=== PATIENT | male | born 1995 | race Caucasian/White ===

== ENCOUNTER 2018-02-16 08:11 | Emergency (ER) | payer OTHER ==
[2018-02-16 08:21] VITALS: BP 110/63; PULSE 97; RESP 18; TEMP 99.4
--- NOTE | 2018-02-16 08:29 | ED ---
Skin/Abscess/FB HPI - General Chief complaint: Skin/Abscess/Foreign Body Stated complaint: Facial infection Time Seen by Provider: 02/16/18 08:23 Source: patient, RN notes reviewed Mode of arrival: ambulatory Limitations: no limitations - History of Present Illness Initial comments: This is a 22-year-old male presents emergency Department chief complaint of infection to his right cheek. Patient states started a few days ago with an pimple states that has increased. He's been squeezing at it and he states that he try to pop it which made it worse. Patient states he feels pressure in his cheek he's had no fever no chills no headache no dizziness and no neck pain. Patient has no history of MRSA or VRE. - Related Data Previous Rx's Medication Instructions Recorded Sulfamethox-Tmp 800-160Mg [Bactrim 2 each PO Q12HR #40 tab 02/16/18 Ds] Allergies Allergy/AdvReac Type Severity Reaction Status Date / Time tomato Allergy Rash/Hives Verified 02/16/18 08:22 Review of Systems ROS Statement: Those systems with pertinent positive or pertinent negative responses have been documented in the HPI. ROS Other: All systems not noted in ROS Statement are negative. Past Medical History Past Medical History: No Reported History History of Any Multi-Drug Resistant Organisms: None Reported Past Surgical History: No Surgical Hx Reported Past Psychological History: No Psychological Hx Reported Smoking Status: Current every day smoker Past Alcohol Use History: None Reported Past Drug Use History: None Reported General Exam Limitations: no limitations General appearance: alert, in no apparent distress Head exam: Present: atraumatic, normocephalic, normal inspection Eye exam: Present: normal appearance, PERRL, EOMI. Absent: scleral icterus, conjunctival injection, periorbital swelling ENT exam: Present: normal oropharynx, mucous membranes moist, TM's normal bilaterally, normal external ear exam, other (Right cheek there is a 1 cm area of induration, erythema which appears to be an abscess. This is nonfluctuant). Absent: normal exam Neck exam: Present: normal inspection, full ROM. Absent: tenderness, meningismus, lymphadenopathy Respiratory exam: Present: normal lung sounds bilaterally. Absent: respiratory distress, wheezes, rales, rhonchi, stridor Cardiovascular Exam: Present: regular rate, normal rhythm, normal heart sounds. Absent: systolic murmur, diastolic murmur, rubs, gallop, clicks Neurological exam: Present: alert Skin exam: Present: warm, dry, intact, normal color Course Vital Signs 02/16/18 08:18 Temperature 99.4 F Pulse Rate 97 Respiratory 18 Rate Blood Pressure 110/63 O2 Sat by Pulse 100 Oximetry Medical Decision Making - Medical Decision Making 22-year-old male presented from for right cheek abscess. This is nonfluctuant abscess. There is a current opening to the area. Patient will be started on Bactrim 2 tablets twice daily concern for MRSA. Patient will warm compresses and follow-up for recheck in 24 hours and return for any worsening symptoms. Disposition Clinical Impression: Facial abscess Disposition: HOME SELF-CARE Instructions: Abscess (ED) Additional Instructions: Please return to the Emergency Department if symptoms worsen or any other concerns. Prescriptions: Sulfamethox-Tmp 800-160Mg [Bactrim Ds] 2 each PO Q12HR #40 tab Is patient prescribed a controlled substance at d/c from ED?: No Referrals: Daniella Loza MD [STAFF PHYSICIAN] - 1-2 days Time of Disposition: 08:29
== END 2018-02-16 08:59 | disposition home or self-care (01) ==
LOC: EC 08:11
DX: L02.01 Cutaneous abscess of face (principal); F17.200 Nicotine dependence, unspecified, uncomplicated; Z91.018 Allergy to other foods
CPT/HCPCS: 99282

== ENCOUNTER 2018-04-24 09:41 | Emergency (ER) | payer OTHER ==
[2018-04-24 09:45] VITALS: TEMP 98.4
[2018-04-24] MEDS ORDERED: KETOROLAC 60 MG/2 ML VIAL IM STA (10:22)
[2018-04-24] MEDS ORDERED: ORPHENADRINE 30 MG/ML 2 ML VIAL IM STA (10:22)
--- NOTE | 2018-04-24 10:26 | ED ---
Neck Injury/Pain HPI - General Chief Complaint: Neck Pain/Injury Stated Complaint: Neck Pain Time Seen by Provider: 04/24/18 09:58 Source: patient, RN notes reviewed Mode of arrival: ambulatory Limitations: no limitations - History of Present Illness Initial Comments: This a 22-year-old male with a history of a "pinched nerve" in his neck who states he's had 2 days of left-sided neck pain radiating down to his left arm. He states that sharp in nature very severe. Increases with movement. He denies any trauma lifting. Patient does say he's had a cough recently. No fevers chills sweats or phlegm production patient is a smoker - Related Data Home Medications Medication Instructions Recorded Confirmed Ibuprofen [Motrin Ib] 200 - 400 mg PO TID PRN 02/16/18 02/16/18 Previous Rx's Medication Instructions Recorded Sulfamethox-Tmp 800-160Mg [Bactrim 2 each PO Q12HR #40 tab 02/16/18 Ds] Cyclobenzaprine [Flexeril] 10 mg PO TID #14 tab 04/24/18 Ibuprofen 800 mg PO Q6HR PRN #20 tablet 04/24/18 predniSONE 20 mg PO BID #10 tab 04/24/18 Allergies Allergy/AdvReac Type Severity Reaction Status Date / Time tomato Allergy Rash/Hives Verified 04/24/18 09:44 Review of Systems ROS Statement: Those systems with pertinent positive or pertinent negative responses have been documented in the HPI. ROS Other: All systems not noted in ROS Statement are negative. Past Medical History Past Medical History: No Reported History History of Any Multi-Drug Resistant Organisms: None Reported Past Surgical History: No Surgical Hx Reported Past Psychological History: No Psychological Hx Reported Smoking Status: Current every day smoker Past Alcohol Use History: None Reported Past Drug Use History: Marijuana General Exam - General Exam Comments Initial Comments: This a well-developed well-nourished awake alert oriented times 3 male Limitations: no limitations General appearance: alert, anxious Head exam: Present: atraumatic, normocephalic, normal inspection Eye exam: Present: normal appearance, PERRL, EOMI. Absent: scleral icterus, conjunctival injection, periorbital swelling ENT exam: Present: normal exam, mucous membranes moist Neck exam: Present: normal inspection, tenderness, full ROM, other (Tenderness palpation along the left trapezius musculature and left paraspinous musculature on the cervical spine. No spinous process tenderness. No left shoulder tenderness.). Absent: meningismus, lymphadenopathy, thyromegaly Respiratory exam: Present: normal lung sounds bilaterally. Absent: respiratory distress, wheezes, rales, rhonchi, stridor Cardiovascular Exam: Present: regular rate, normal rhythm, normal heart sounds. Absent: systolic murmur, diastolic murmur, rubs, gallop, clicks Extremities exam: Present: normal inspection, full ROM, normal capillary refill. Absent: tenderness, pedal edema, joint swelling, calf tenderness Back exam: Present: normal inspection Neurological exam: Present: alert, oriented X3, CN II-XII intact Psychiatric exam: Present: normal affect, normal mood Skin exam: Present: warm, dry, intact, normal color. Absent: rash Course Vital Signs 04/24/18 09:43 Temperature 98.4 F Pulse Rate 101 H Respiratory 20 Rate Blood Pressure 108/71 O2 Sat by Pulse 98 Oximetry Medical Decision Making - Medical Decision Making I did discuss findings with the patient is feeling somewhat improved he'll be discharged on appropriate medication. The presentation is consistent with a muscle spasm - Radiology Data Radiology results: report reviewed (I did review the imaging and report no acute findings.), image reviewed Disposition Clinical Impression: Strain of neck muscle, Myofascial pain on left side Disposition: HOME SELF-CARE Condition: Good Instructions: Cervical Strain (ED), Muscle Spasm (ED) Prescriptions: Cyclobenzaprine [Flexeril] 10 mg PO TID #14 tab Ibuprofen 800 mg PO Q6HR PRN #20 tablet PRN Reason: Pain predniSONE 20 mg PO BID #10 tab Is patient prescribed a controlled substance at d/c from ED?: No Referrals: None,Stated [Primary Care Provider] - 1-2 days
[2018-04-24] MEDS ORDERED: KETOROLAC 30 MG/ML 1 ML VIAL IVP STA (10:33)
--- NOTE | 2018-04-24 10:50 | XR ---
EXAMINATION TYPE: XR chest 2V DATE OF EXAM ORDERED: 04/24/2018 HISTORY: cough. REFERENCE: None. FINDINGS: The lungs are clear. Pleural spaces are clear. Heart size is normal. IMPRESSION: NORMAL CHEST.
[2018-04-24 12:22] VITALS: BP 116/63; RESP 4
[2018-04-24 12:23] VITALS: PULSE 89
== END 2018-04-24 12:20 | disposition home or self-care (01) ==
LOC: EC 09:41
DX: S16.1XXA Strain of muscle, fascia and tendon at neck level, initial encounter (principal); M79.1 Myalgia; R05 Cough; F17.200 Nicotine dependence, unspecified, uncomplicated; Z91.018 Allergy to other foods; Z53.8 Procedure and treatment not carried out for other reasons
CPT/HCPCS: 71046; 99283; J2360; J1885